=== PATIENT | male | born 1980 | race African-American/Black ===

== ENCOUNTER 2017-03-01 22:40 | Inpatient (IN) | payer OTHER ==
--- NOTE | 2017-03-01 23:14 | PDOC ---
History of Present Illness - General History Source: Patient Exam Limitations: No Limitations - History of Present Illness Travel History: No Initial Comments: 03/02/17 01:57 The patient is a 36 year old male with a significant past medical history of thyroid disease s/p thyroidectomy who presents to the ED with 2 days of cough and 1 day of abdominal pain and fever. The patient reports a progressively worsening cough since yesterday. He states his cough is productive of phlegm. He reports an onset of generalized abdominal pain, worsened at the site of his umbilical hernia today. Patient states his cough worsens his abdominal pain and he is spitting up food and phlegm but denies any nausea/vomiting. Patient also reports a subjective fever and generalized weakness associated with present symptoms. Denies chest pain. Denies diarrhea. Denies dysuria, frequency or urgency. Denies any other symptoms. <Mayo Alexander - Last Filed: 03/02/17 02:09> <Thao Sung - Last Filed: 03/02/17 19:55> - General Chief Complaint: SIRS, Suspected/Possible Stated Complaint: FEVER, ABDOMINAL PAIN Time Seen by Provider: 03/01/17 22:59 Past History - Past Medical History COPD: No Seizures: Yes Thyroid Disease: Yes - Suicide/Smoking/Psychosocial Hx Smoking History: Current every day smoker Number of Cigarettes Smoked Daily: 7 Information on smoking cessation initiated: No <Mayo Alexander - Last Filed: 03/02/17 02:09> <Thao Sung - Last Filed: 03/02/17 19:55> - Past Medical History Allergies/Adverse Reactions: Allergies Allergy/AdvReac Type Severity Reaction Status Date / Time No Known Allergies Allergy Verified 03/01/17 22:44 Home Medications: Ambulatory Orders NK [No Known Home Medication] 03/01/17 Review of Systems - Review of Systems Able to Perform ROS?: Yes Comments:: 03/02/17 01:58 CONSTITUTIONAL: + fever, generalized weakness No reported: Diaphoresis, Malaise, Loss of Appetite HEENT: No reported: Rhinorrhea, Nasal Congestion, Throat Pain, Throat Swelling, Difficulty Swallowing, Mouth Swelling, Ear Pain, Eye Pain, Visual Changes CARDIOVASCULAR: No reported: Chest Pain, Syncope, Palpitations, Irregular Heart Rate, Lightheadedness, Peripheral Edema RESPIRATORY:+ cough No reported: SOB with Exertion, Orthopnea, Wheezing, Stridor, Hemoptysis GASTROINTESTINAL: + abdominal pain No reported: Abdominal Distension, Nausea, Vomiting, Diarrhea, Constipation, Melena, Hematochezia GENITOURINARY: No reported: Dysuria, Frequency, Urgency, Hesitancy, Flank Pain, Genital Pain MUSCULOSKELETAL: No reported: Myalgia, Arthralgia, Joint Swelling, Back pain, Neck Pain SKIN: No reported: Rash, Itching, Pallor HEMEATOLOGIC/IMMUNOLOGIC: No reported: Easy Bleeding, Easy Bruising, Lymphadenopathy, Frequent infections ENDOCRINE: No reported: Unexplained Weight Gain, Unexplained Weight Loss, Heat Intolerance , Cold Intolerance NEUROLOGIC: No reported: Headache, Focal Weakness, Paresthesias, Vertigo, Lightheadedness, Unsteady Gait, Seizure, Mental Status Changes, Incontinence PSYCHIATRIC: No reported: Anxiety, Depression <Catherine,Mayo - Last Filed: 03/02/17 02:09> *Physical Exam - Vital Signs Last Vital Signs Temp Pulse Resp BP Pulse Ox 101.4 F H 113 H 20 151/83 94 L 03/01/17 22:44 03/01/17 22:44 03/01/17 22:44 03/01/17 22:44 03/01/17 22:44 - Physical Exam Comments: 03/02/17 01:58 GENERAL: The patient is awake, alert, and fully oriented, Nontoxic - in no acute distress. HEAD: Normocephalic, atraumatic. EYES: extraocular movements intact, sclera anicteric, conjunctiva clear. ENT: + Dry mucosa. Normal voice NECK: Normal range of motion, supple LUNGS: Breath sounds equal, clear to auscultation bilaterally. No wheezes, no rhonchi, no rales. HEART: Regular rate and rhythm, without murmur, rub or gallop. ABDOMEN: + Ventral and umbilical hernia, umbilical hernia is mildly tender but easily reducible. mild left lower quadrant tenderness. normoactive bowel sounds. No guarding, no rebound.N o CVA tenderness EXTREMITIES: Normal range of motion, no edema. No clubbing or cyanosis. No cords, erythema, or tenderness. NEUROLOGICAL: No facial assymetry, Normal speech PSYCH: Normal mood, normal affect. SKIN: Warm, Dry, normal turgor <Catherine,Mayo - Last Filed: 03/02/17 02:09> - Vital Signs Last Vital Signs Temp Pulse Resp BP Pulse Ox 101.4 F H 113 H 20 151/83 94 L 03/01/17 22:44 03/01/17 22:44 03/01/17 22:44 03/01/17 22:44 03/01/17 22:44 <Thao Sung - Last Filed: 03/02/17 19:55> ED Treatment Course - LABORATORY CBC & Chemistry Diagram: 03/01/17 23:32 03/01/17 23:32 <CatherineMayo - Last Filed: 03/02/17 02:09> - LABORATORY CBC & Chemistry Diagram: 03/01/17 23:32 03/01/17 23:32 - ADDITIONAL ORDERS Additional order review: Laboratory Results 03/01/17 03/01/17 23:32 23:27 Sodium 139 Potassium 4.0 Chloride 101 Carbon Dioxide 31 Anion Gap 7 L BUN 18 Creatinine 1.8 H Creat Clearance w eGFR 43.41 Random Glucose 111 H Calcium 8.8 Total Bilirubin 0.4 AST 29 ALT 30 Alkaline Phosphatase 66 Total Protein 7.9 Albumin 4.5 Urine Color Yellow Urine Appearance Slcloudy Urine pH 5.0 Ur Specific [place] 1.028 Urine Protein 1+ H Urine Glucose (UA) Negative Urine Ketones Negative Urine Blood Negative Urine Nitrite Negative Urine Bilirubin Negative Urine Urobilinogen 4.0 e.u/dl Urine WBC (Auto) 11 Urine RBC (Auto) 1 Ur Epithelial Cells Rare Urine Bacteria Few Hyaline Casts 1 Urine Mucus Moderate 03/02/17 02:42 Influenza Types A,B Antigen ([facility]) - Final Nasopharyngeal Swab - Final 03/01/17 23:32 RBC 3.89 L MCV 95.1 MCHC 34.0 RDW 14.3 MPV 9.7 Neutrophils % 75.4 Lymphocytes % 10.8 Monocytes % 11.7 H Eosinophils % 0.8 Basophils % 1.3 - Medications Given in the ED: ED Medications Discontinued Medications Generic Name Dose Route Start Last Admin Trade Name Freq PRN Reason Stop Dose Admin Acetaminophen 650 mg 03/01/17 23:15 03/01/17 23:34 Tylenol - PO 03/01/17 23:16 650 mg ONCE ONE Administration Sodium Chloride 1,000 mls @ 1,000 mls/hr 03/01/17 23:15 03/01/17 23:34 Normal Saline - IV 03/02/17 00:14 1,000 mls/hr .Q1H ONE Administration Oseltamivir Phosphate 75 mg 03/02/17 04:16 03/02/17 04:45 Tamiflu - PO 03/02/17 04:17 75 mg ONCE ONE Administration <Thao Sung - Last Filed: 03/02/17 19:55> Medical Decision Making - Medical Decision Making 03/02/17 01:05 36y M hx presents with complaint of abdominal pain and cough. Pt states he started having a cough yeserday but abd pain started today with fever. no associated vomiting, diarrhea. on exam pts abdomen is soift with a ventral and reducible umbilical hernai and mild LLQ pain. lungs are clear to ascultation i suspect he pts abd pain may be msk secondary to his cough however with mil dtenderness will erasesss will obtain cxr to r/o pna and will obtain lab work 03/02/17 02:10 pts alb work unremarable no obvious infiltrate on cxr pt still with abd pain will obtain ct abdomen pts cr is 1.8 - will obtain ct with po contrast without IV contrast pt signed out to dr. sung to reassess the patient. <Mayo Alexander - Last Filed: 03/02/17 02:09> - Medical Decision Making 03/02/17 04:46 Patient Name: NAVI ELENA THIS IS A PRELIMINARY REPORT FROM [facility] DATE OF SERVICE: 2017-03-02 04:18:54 IMAGES: 563 EXAM: CT ABDOMEN AND PELVIS without contrast HISTORY: Abdominal pain COMPARISON: None. FINDINGS: Bibasilar dependent atelectasis is noted. The visualized cardiac chambers are normal size and configuration. There is a small pericardial effusion. Tiny bilateral nonobstructing renal stones are noted. Normal unenhanced liver, gallbladder, pancreas, spleen, adrenal glands . The stomach and abdominal small and large bowel are normal. There is no aortic aneurysm. There is no significant retroperitoneal lymphadenopathy. There is a small mildly inflamed fat containing umbilical hernia. The pelvic small and large bowel are normal. The appendix is normal. The urinary bladder and prostate gland are normal. No pelvic free fluid is identified. There is no significant pelvic lymphadenopathy. IMPRESSION: Tiny bilateral nonobstructing renal stones. Small pericardial effusion. Small mildly inflamed fat containing umbilical hernia, possibly the cause of the patient's symptomatology. THIS DOCUMENT HAS BEEN ELECTRONICALLY SIGNED 03/02/17 19:54 Pt looks awful and spiked another temp. He has flu, UTI, fever, weakness, fat hernia with abd pain and I cannot send him home in this condition. He was [facility] to [facility], as his PMD is Letty. I spoke to [facility] to let him know of the patient. <Thao Sung - Last Filed: 03/02/17 19:55> *DC/Admit/Observation/Transfer <Mayo Alexander - Last Filed: 03/02/17 02:09> - Discharge Dispostion Admit: Yes <Thao Sung - Last Filed: 03/02/17 19:55> Diagnosis at time of Disposition: Influenza A, Kidney stone, UTI (urinary tract infection), Weakness - Discharge Dispostion Condition at time of disposition: Guarded
[2017-03-01] MEDS ORDERED: ACETAMINOPHEN 325 MG TABLET (FP) PO ONE (23:15)
[2017-03-01] MEDS ORDERED: SODIUM CHLORIDE 1,000 ML IV ONE (23:15)
[2017-03-01] MEDS ORDERED: ACETAMINOPHEN 325 MG TABLET (FP) ONE (23:21)
[2017-03-01 23:37] LABS: BASOPHIL 1.3 % (0-2.0); EOSINOPHIL 0.8 % (0-4.5); MCH 32.3 pg (25.7-33.7); MEAN CELL VOLUME 95.1 fl (80-96); MEAN PLT VOLUME 9.7 fl (7.5-11.1); NEUTROPHILS 75.4 % (42.8-82.8); PLATELET COUNT 163 K/MM3 (134-434); RDW 14.3 % (11.9-15.9); WHITE BLOOD COUNT 6.4 K/mm3 (4.0-10.0)
[2017-03-01 23:41] LABS: URINE APPEARANCE SLCLOUDY; URINE BILIRUBIN NEGATIVE (NEGATIVE); URINE BLOOD NEGATIVE (NEGATIVE); URINE COLOR YELLOW; URINE GLUCOSE (UA) NEGATIVE (NEGATIVE); URINE KETONE NEGATIVE (NEGATIVE); URINE NITRITE NEGATIVE (NEGATIVE); URINE UROBILINOGEN 4.0 E.U/dl mg/dL (0.2-1.0)
[2017-03-01 23:47] LABS: URINE LEUK ESTERASE 1+ (NEGATIVE); URINE PROTEIN 1+ (NEGATIVE)
[2017-03-01 23:48] LABS: URINE BACTERIA FEW /hpf (NONE SEEN); URINE HYALINE CAST 1 /lpf; URINE MUCUS MODERATE; URINE RBC 1 /hpf (0-3); URINE WBC 11 /hpf (3-5)
[2017-03-01 23:58] LABS: ALBUMIN 4.5 g/dl (3.4-5.0); ALK PHOS 66 U/L (45-117); ANION GAP 7 (8-16); BILIRUBIN,TOTAL 0.4 mg/dL (0.2-1.0); CALCIUM 8.8 mg/dL (8.5-10.1); CO2 31 mmol/L (21-32); CREATININE 1.8 mg/dL (0.7-1.3); GLUCOSE,RANDOM 111 mg/dL (74-106); SGOT/AST 29 U/L (15-37); SGPT/ALT 30 U/L (12-78); TOT PROT 7.9 g/dl (6.4-8.2)
[2017-03-02] MEDS ORDERED: OSELTAMIVIR PHOSPHATE 75 MG CAPSULE PO ONE (04:16)
[2017-03-02] MEDS ORDERED: OSELTAMIVIR PHOSPHATE 75 MG CAPSULE ONE (04:20)
[2017-03-02] MEDS ORDERED: ACETAMINOPHEN 1000 MG/100 ML VIAL (NON FORMULARY) IVPB ONE (04:51)
[2017-03-02] MEDS ORDERED: ACETAMINOPHEN INJECTION 100 ML IVPB ONE ×2 (04:54→04:55)
[2017-03-02] MEDS ORDERED: CEFTRIAXONE 1 GM in DEXTROSE 5%-WATER - 50 ML IVPB ONE (04:55)
[2017-03-02] MEDS ORDERED: CEFTRIAXONE 1 GM/50 ML BAG ONE (04:55)
[2017-03-02 07:21] VITALS: BMI 43.2
[2017-03-02] MEDS ORDERED: ACETAMINOPHEN 325 MG TABLET (FP) PO PRN (11:21)
[2017-03-02] MEDS ORDERED: D5-1/2NS+20 MEQ KCL - 20 MEQ/1,000 ML INFUS.BAG IV SCH (11:30)
--- NOTE | 2017-03-02 11:30 | HP ---
Admitting History and Physical - Admission History of Present Illness: 36 year old male with a significant past medical history of thyroid disease s/p thyroidectomy who presents to the ED with 2 days of cough and 1 day of abdominal pain and fever. The patient reports a progressively worsening cough since yesterday. He states his cough is productive of phlegm. He reports an onset of generalized abdominal pain, worsened at the site of his umbilical hernia today. Patient states his cough worsens his abdominal pain and he is spitting up food and phlegm but denies any nausea/vomiting. Patient also reports a subjective fever and generalized weakness associated with present symptoms. Denies chest pain. Denies diarrhea. Denies dysuria, frequency or urgency. Denies any other symptoms. - Past Medical History Endocrine: Yes: Hypothyroidism - Past Surgical History Additional Past Surgical History: thyroidectomy - Smoking History Smoking history: Current every day smoker Aproximately how many cigarettes per day: 7 Home Medications - Allergies Allergies/Adverse Reactions: Allergies Allergy/AdvReac Type Severity Reaction Status Date / Time No Known Allergies Allergy Verified 03/01/17 22:44 - Home Medications Home Medications: Ambulatory Orders NK [No Known Home Medication] 03/01/17 Review of Systems - Review of Systems Constitutional: reports: Fever Cardiovascular: denies: Chest Pain, Edema Respiratory: reports: Cough Gastrointestinal: reports: Abdominal Pain Physical Examination Vital Signs: Vital Signs Temperature 99.3 F 03/02/17 07:19 Pulse Rate 103 H 03/02/17 07:19 Respiratory Rate 22 03/02/17 07:19 Blood Pressure 150/96 03/02/17 07:19 O2 Sat by Pulse Oximetry (%) 91 L 03/02/17 07:10 Cardiovascular: Yes: S1, S2 Respiratory: Yes: Diminished Gastrointestinal: Yes: Normal Bowel Sounds, Soft, Tenderness, Other (umbilical hernia) Labs: CBC, BMP 03/01/17 23:32 03/01/17 23:32 Imaging - Results Chest X-ray: Image Reviewed Problem List - Problems (1) Abdominal pain Assessment/Plan: NPO IVF GI AND SURGICAL CONSULTS Code(s): R10.9 - UNSPECIFIED ABDOMINAL PAIN (2) Umbilical hernia Assessment/Plan: ABOVE Code(s): K42.9 - UMBILICAL HERNIA WITHOUT OBSTRUCTION OR GANGRENE (3) Influenza A Assessment/Plan: TAMIFLU NEBS ID CONSULT Code(s): J10.1 - FLU DUE TO OTH IDENT INFLUENZA VIRUS W OTH RESP MANIFEST
--- NOTE | 2017-03-02 12:12 | PN ---
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 -hypothyroid denies seizures no prior surgery no travel prior thyroidectomy ct scan prelim with mildly inflamed fat containing umbilical hernia Influenza A in cigarette smoker/morbidly obese man agree with tamiflu would get blood cultures would ask pulmonary to see given hypoxia will get abg as well check ekg received rocephin/tamiflu in ed this am check tsh droplet isolation no clear infiltrate on cxray ?OSAS abdominal pain most likely due to umbilical hernia Problem List - Problems (1) Influenza A Code(s): J10.1 - FLU DUE TO OTH IDENT INFLUENZA VIRUS W OTH RESP MANIFEST (2) Morbid obesity Code(s): E66.01 - MORBID (SEVERE) OBESITY DUE TO EXCESS CALORIES
--- NOTE | 2017-03-02 12:43 | CON.PULM ---
Consult Consult Specialty:: PULMONARY Referred by:: Dr. Fuentes Reason for Consultation:: sepsis - History of Present Illness Chief Complaint: abdominal pain History of Present Illness: 36yo male with h/o thyroidectomy who presents with abdominal pain, fevers and cough x 2 days. He reports that his mother and niece were sick with similar symptoms. Cough productive of white/clear sputum. No wheezing. Abdominal pain at the site of his umbilical hernia. He is an every day smoker, no history of asthma or COPD. Did receive his flu shot this year. Denies snoring or witnessed apneas. - History Source History Provided By: Patient, Medical Record Limitations to Obtaining History: Clinical Condition - Past Medical History Endocrine: Yes: Hypothyroidism - Past Surgical History Additional Surgical History: thyroidectomy - Smoking History Smoking history: Current every day smoker Aproximately how many cigarettes per day: 7 Home Medications - Allergies Allergies/Adverse Reactions: Allergies Allergy/AdvReac Type Severity Reaction Status Date / Time No Known Allergies Allergy Verified 03/01/17 22:44 - Home Medications Home Medications: Ambulatory Orders NK [No Known Home Medication] 03/01/17 Review of Systems - Review of Systems Constitutional: reports: Chills, Fever, Malaise Eyes: denies: Recent Change in Vision HENT: denies: Nasal Congestion, Throat Pain Neck: denies: Stiffness, Tenderness Cardiovascular: reports: Shortness of Breath. denies: Chest Pain, Edema, Palpitations Respiratory: reports: Cough, SOB on Exertion. denies: Hemoptysis, Wheezing Gastrointestinal: reports: Abdominal Pain. denies: Nausea, Vomiting Genitourinary: denies: Dysuria, Hematuria Neurological: denies: Dizziness, Headache Physical Exam Vital Sings: Vital Signs Temperature 99.3 F 03/02/17 07:19 Pulse Rate 103 H 03/02/17 07:19 Respiratory Rate 22 03/02/17 07:19 Blood Pressure 150/96 03/02/17 07:19 O2 Sat by Pulse Oximetry (%) 91 L 03/02/17 07:10 Constitutional: Yes: Mild Distress Eyes: Yes: Conjunctiva Clear, EOM Intact HENT: Yes: Atraumatic, Normocephalic Neck: Yes: Supple, Trachea Midline Cardiovascular: Yes: Tachycardia Respiratory: Yes: Diminished (distant breath sounds). No: Wheezes ...Clubbing: No Gastrointestinal: Yes: Normal Bowel Sounds, Soft, Abdomen, Obese. No: Tenderness Edema: No Neurological: Yes: Alert, Oriented Labs: CBC, BMP 03/01/17 23:32 03/01/17 23:32 Imaging - Results Chest X-ray: Report Reviewed, Image Reviewed (no infiltrates) Problem List - Problems (1) URI (upper respiratory infection) Code(s): J06.9 - ACUTE UPPER RESPIRATORY INFECTION, UNSPECIFIED (2) Sepsis Code(s): A41.9 - SEPSIS, UNSPECIFIED ORGANISM (3) Acute kidney injury Code(s): N17.9 - ACUTE KIDNEY FAILURE, UNSPECIFIED (4) Smoker Code(s): F17.200 - NICOTINE DEPENDENCE, UNSPECIFIED, UNCOMPLICATED Assessment/Plan URI r/o Influenza Sepsis Acute Kidney Injury Likely [place] - agree with empiric tamiflu - send cultures - IVF - monitor urine output, creatinine - O2 to keep Spo2 >90% - inhaled bronchodilators - DVT prophylaxis - sleep screen when more stable Thank you for this consult Masood Shah MD
[2017-03-02 12:54] LABS: URINE LEUK ESTERASE NEGATIVE (NEGATIVE)
[2017-03-02 13:57] LABS: ARTERIAL BLD GAS O2 SATURATION 89.7 % (90-98.9); ARTERIAL BLOOD GAS BASE EXCESS 4.7 meq/l (-2-2); ARTERIAL BLOOD GAS HCO3 28.7 meq/L (22-26); ARTERIAL BLOOD GAS PO2 55.6 mmHg (80-100); ARTERIAL BLOOD GAS pH 7.45 (7.35-7.45)
[2017-03-02 14:01] LABS: ART PUNCT SITE RIGHT RADIAL
[2017-03-02 14:02] LABS: TYPE OF O2 ROOM AIR
--- NOTE | 2017-03-02 14:26 | CONS ---
DATE OF CONSULTATION: 03/02/2017 This is a 36-year-old man admitted via the emergency room last night. For the last 2 days, he has had cough, fevers and chills at home. He developed some abdominal pain as well with the coughing. He has had white-yellow phlegm. He has nasal discharge. He has no nausea or vomiting. He has been having fever and weakness. 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 There is no history of any travel. He report he had a flu shot this year. He is followed by Dr. Ashraf as an outpatient. He has no chest pain. He reports that he is a cigarette smoker. His past medical history is notable for thyroid disease. He denies seizure disorder. He denies COPD. Surgical history is notable for thyroidectomy, which he reports was for an overactive thyroid. Medications at home include Synthroid. He has no known drug allergies. His family history is not available. SOCIAL HISTORY: He lives in the community. He denies any substance use though he does smoke cigarettes actively. Review of systems is notable for fever, is notable for rhinorrhea. He has nasal congestion. He reports diffuse abdominal pain. PHYSICAL EXAMINATION: Vital Signs: His temperature was 101.8, currently 99.3. Pulse of 89. Blood pressure 176/93. Pulse oximetry of 91% on room air. General: He is a morbidly obese man. He has the sheets pulled over his face but is willing to take them down. HEENT: Normocephalic. His eyes are anicteric. He has rhinorrhea. He has no pharyngitis. Lungs: Scattered rhonchi. Heart: Regular rate and rhythm. Abdomen: Protuberant. He has a small umbilical hernia. He complains of diffuse abdominal pain on exam. Extremities: His extremities are notable for bilateral edema. His labs are notable for white count of 6.4, hemoglobin 12.6, platelets of 163, BUN 18, creatinine 1.8. LFTs are normal. Urinalysis is notable for 1+ protein. Influenza screen was done and is positive for influenza A. Chest x-ray is notable for weak inspiration with some atelectasis. CAT scan of the abdomen and pelvis were done that showed bibasilar atelectasis. He has nonobstructing renal stones. He has a small, mildly inflamed fat-containing umbilical hernia. In summary, this is a 36-year-old man admitted with influenza A, and cigarette smoker, and a morbidly obese man. I would certainly agree with treating him with Tamiflu. Would get blood cultures for his fever. Would ask Pulmonary to see, given his hypoxia, which I suspect is a combination of obstructive sleep apnea and COPD and a smoker, but concerns for viral pneumonia are certainly possible. Would get an ABG as well, check EKG, which has not been done. Would check a TSH, given the history of hypothyroidism. He received Rocephin and Tamiflu. Would place him on droplet isolation and continue Tamiflu for now. He has no clear infiltrate on chest x-ray. With the normal white count, would hold on further antibiotics. His abdominal pain mostly likely is due to umbilical hernia. GI Surgery opinion has been requested. SARAH ESTRELLA M.D. [id number]
--- NOTE | 2017-03-02 14:26 | PN ---
Progress Note, Physician - Current Medication List Current Medications: Active Medications Acetaminophen (Tylenol -) 650 mg PO Q4H PRN PRN Reason: FEVER OR PAIN Albuterol/Ipratropium (Duoneb -) 1 amp NEB QIDR JOANNE Heparin Sodium (Porcine) (Heparin -) 5,000 unit SQ BID [facility] Sodium Chloride (Normal Saline -) 1,000 mls @ 125 mls/hr IV ASDIR JOANNE Oseltamivir Phosphate (Tamiflu -) 75 mg PO BID [facility] Stop: 03/07/17 21:59 - Objective Vital Signs: Vital Signs Temperature 99.3 F 03/02/17 07:19 Pulse Rate 103 H 03/02/17 07:19 Respiratory Rate 22 03/02/17 07:19 Blood Pressure 150/96 03/02/17 07:19 O2 Sat by Pulse Oximetry (%) 91 L 03/02/17 07:10 Cardiovascular: Yes: Regular Rate and Rhythm Respiratory: Yes: Regular, CTA Bilaterally Gastrointestinal: Yes: Normal Bowel Sounds, Soft Labs: CBC, BMP 03/01/17 23:32 03/01/17 23:32 Problem List - Problems (1) Abdominal pain Assessment/Plan: NPO IVF GI AND SURGICAL CONSULTS Code(s): R10.9 - UNSPECIFIED ABDOMINAL PAIN (2) Umbilical hernia Assessment/Plan: ABOVE Code(s): K42.9 - UMBILICAL HERNIA WITHOUT OBSTRUCTION OR GANGRENE (3) Influenza A Assessment/Plan: TAMIFLU NEBS ID CONSULT Code(s): J10.1 - FLU DUE TO OTH IDENT INFLUENZA VIRUS W OTH RESP MANIFEST
[2017-03-02] MEDS: SODIUM CHLORIDE 1,000 ML IV SCH (14:35)
--- NOTE | 2017-03-02 17:44 | CON.GI ---
Consult Consult Specialty:: Gastroenterology Referred by:: Dr. Harrell Reason for Consultation:: Hernia - History of Present Illness Chief Complaint: Pain at umbilical hernia History of Present Illness: 36M is admitted with pain at his umbilical hernia that began yesterday without any provocative activity. He also has constitutional symptoms suggesting the flu. He denies any h/o GI problems. NO diarrhea. 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 Place of : [facility] History of Recent Travel: No Home Medications - Allergies Allergies/Adverse Reactions: Allergies Allergy/AdvReac Type Severity Reaction Status Date / Time No Known Allergies Allergy Verified 03/01/17 22:44 - Home Medications Home Medications: Ambulatory Orders NK [No Known Home Medication] 03/01/17 Family Disease History - Family Disease History Family Disease History: Other: Father (unknown), Mother (healthy aside from HTN) Review of Systems - Review of Systems Constitutional: reports: Chills, Lethargy, Loss of Appetite, Malaise Eyes: reports: No Symptoms HENT: reports: No Symptoms Neck: reports: No Symptoms Cardiovascular: reports: No Symptoms Respiratory: reports: Cough Gastrointestinal: reports: Abdominal Pain Genitourinary: reports: No Symptoms Musculoskeletal: reports: No Symptoms Neurological: reports: No Symptoms Physical Exam-GI Vital Signs: Vital Signs Temperature 100.4 F H 03/02/17 14:42 Pulse Rate 103 H 03/02/17 14:42 Respiratory Rate 18 03/02/17 14:42 Blood Pressure 155/90 03/02/17 14:42 O2 Sat by Pulse Oximetry (%) 91 L 03/02/17 07:10 CBC,CMP WBC 6.4 K/mm3 (4.0-10.0) 03/01/17 23:32 RBC 3.89 M/mm3 (4.00-5.60) L 03/01/17 23:32 Hgb 12.6 GM/dL (11.7-16.9) 03/01/17 23:32 Hct 37.0 % (35.4-49) 03/01/17 23:32 MCV 95.1 fl (80-96) 03/01/17 23:32 MCH 32.3 pg (25.7-33.7) 03/01/17 23:32 MCHC 34.0 g/dl (32.0-35.9) 03/01/17 23:32 RDW 14.3 % (11.9-15.9) 03/01/17 23:32 Plt Count 163 K/MM3 (134-434) 03/01/17 23:32 MPV 9.7 fl (7.5-11.1) 03/01/17 23:32 Neutrophils % 75.4 % (42.8-82.8) 03/01/17 23:32 Lymphocytes % 10.8 % (8-40) 03/01/17 23:32 Monocytes % 11.7 % (3.8-10.2) H 03/01/17 23:32 Eosinophils % 0.8 % (0-4.5) 03/01/17 23:32 Basophils % 1.3 % (0-2.0) 03/01/17 23:32 Sodium 139 mmol/L (136-145) 03/01/17 23:32 Potassium 4.0 mmol/L (3.5-5.1) 03/01/17 23:32 Chloride 101 mmol/L (98-107) 03/01/17 23:32 Carbon Dioxide 31 mmol/L (21-32) 03/01/17 23:32 Anion Gap 7 (8-16) L 03/01/17 23:32 BUN 18 mg/dL (7-18) 03/01/17 23:32 Creatinine 1.8 mg/dL (0.7-1.3) H 03/01/17 23:32 Creat Clearance w eGFR 43.41 (>60) 03/01/17 23:32 Random Glucose 111 mg/dL (74-106) H 03/01/17 23:32 Calcium 8.8 mg/dL (8.5-10.1) 03/01/17 23:32 Total Bilirubin 0.4 mg/dL (0.2-1.0) 03/01/17 23:32 AST 29 U/L (15-37) 03/01/17 23:32 ALT 30 U/L (12-78) 03/01/17 23:32 Alkaline Phosphatase 66 U/L (45-117) 03/01/17 23:32 Total Protein 7.9 g/dl (6.4-8.2) 03/01/17 23:32 Albumin 4.5 g/dl (3.4-5.0) 03/01/17 23:32 Current Medications Generic Name Dose Route Start Last Admin Trade Name Freq PRN Reason Stop Dose Admin Acetaminophen 650 mg 03/02/17 11:21 Tylenol - PO Q4H PRN FEVER OR PAIN Albuterol/Ipratropium 1 amp 03/02/17 18:00 Duoneb - NEB QIDR JOANNE Heparin Sodium (Porcine) 5,000 unit 03/02/17 22:00 Heparin - SQ BID JOANNE Sodium Chloride 1,000 mls @ 125 mls/hr 03/02/17 13:00 03/02/17 14:35 Normal Saline - IV 125 mls/hr ASDIR JOANNE Administration Oseltamivir Phosphate 75 mg 03/02/17 22:00 Tamiflu - PO 03/07/17 21:59 BID JOANNE Constitutional: Yes: Well Nourished Eyes: Yes: Conjunctiva Clear HENT: Yes: Atraumatic, Nasal Congestion Neck: Yes: Supple, Other (transverse healed incision) Cardiovascular: Yes: Regular Rate and Rhythm Respiratory: Yes: CTA Bilaterally Gastrointestinal Inspection: Yes: Hernia (mildly tender umbilical hernia) ...Auscultate: Yes: Normoactive Bowel Sounds ...Palpate: Yes: Tenderness (mild hernia tenderness which recurs immediately after reduction) ...Percussion: Yes: Tympanitic ...Rectal Exam: Yes: Deferred (patient declined) Genitourinary: Yes: Other (no inguinal hernias) Edema: No Labs: CBC, BMP 03/01/17 23:32 03/01/17 23:32 Imaging - Results Cat Scan: Image Reviewed (umbilical hernia and renal stones) Problem List - Problems (1) Umbilical hernia Assessment/Plan: Pain is due to a tender umbilical hernia which is not stangulated at this point. Will defer management to the rn surgical pcu. Dr Conner will return tomorrow. Code(s): K42.9 - UMBILICAL HERNIA WITHOUT OBSTRUCTION OR GANGRENE Qualifiers: Obstruction and gangrene presence: without obstruction or gangrene Qualified Code(s): K42.9 - Umbilical hernia without obstruction or gangrene
[2017-03-02] MEDS: ALBUTEROL SO4 2.5/IPRATROPIUM 0.5 INH SOL 3 ML VIAL.NEB. NEB SCH (17:50)
[2017-03-02] MEDS: HEPARIN NA (PORCINE) 5,000 UNITS/ML 1ML VIAL SQ SCH (21:03)
[2017-03-02] MEDS: OSELTAMIVIR PHOSPHATE 75 MG CAPSULE PO SCH (21:03)
[2017-03-03] MEDS: ALBUTEROL SO4 2.5/IPRATROPIUM 0.5 INH SOL 3 ML VIAL.NEB. NEB SCH ×4 (00:21→18:16)
[2017-03-03] MEDS: SODIUM CHLORIDE 1,000 ML IV SCH (00:45)
[2017-03-03 07:24] LABS: BASOPHIL 1.1 % (0-2.0); EOSINOPHIL 0.6 % (0-4.5); MCH 31.8 pg (25.7-33.7); MCHC 33.3 g/dl (32.0-35.9); MEAN CELL VOLUME 95.5 fl (80-96); MEAN PLT VOLUME 9.7 fl (7.5-11.1); NEUTROPHILS 48.9 % (42.8-82.8); PLATELET COUNT 141 K/MM3 (134-434); RDW 14.3 % (11.9-15.9); WHITE BLOOD COUNT 4.6 K/mm3 (4.0-10.0)
[2017-03-03 08:19] LABS: ALBUMIN 3.6 g/dl (3.4-5.0); ALK PHOS 59 U/L (45-117); ANION GAP 7 (8-16); BILIRUBIN,TOTAL 0.4 mg/dL (0.2-1.0); CALCIUM 7.5 mg/dL (8.5-10.1); CO2 29 mmol/L (21-32); CREATININE 1.8 mg/dL (0.7-1.3); GLUCOSE,RANDOM 78 mg/dL (74-106); MAGNESIUM 1.9 mg/dL (1.8-2.4); PHOSPHOROUS 3.2 mg/dL (2.5-4.9); SGOT/AST 35 U/L (15-37); SGPT/ALT 37 U/L (12-78); TOT PROT 6.7 g/dl (6.4-8.2)
--- NOTE | 2017-03-03 08:20 | CONSULT ---
- Consultation REQUESTING PROVIDER: Julio Cesar SANDHU CONSULT REQUEST: We have been asked to surgically evaluate this patient for abdominal pain PCP:Yajaira Bardales HISTORY OF PRESENT ILLNESS: CTSP for evaluation and management of abdominal pain ; pain started after coughing b/o probable URI; pain at site of known umbilical hernia; he ststes he told his PCP about it h/e he was never told to see a surgeon for evaluation for repair; pain is 5-6/10 at the umbilicus; NOC. PMHx: hypertension hypothyroid PSHx: thyroidectomy Home Medications Medication Instructions Recorded NK [No Known Home Medication] 03/01/17 Allergies Allergy/AdvReac Type Severity Reaction Status Date / Time No Known Allergies Allergy Verified 03/01/17 22:44 PHYSICAL EXAM: GENERAL: Awake, alert, and fully oriented, in no acute distress. HEAD: Normal with no signs of trauma. EYES: sclera anicteric, conjunctiva clear. NECK: Normal ROM, supple without lymphadenopathy, JVD, or masses.healed scar ABDOMEN: Soft, nontender, not distended, normoactive bowel sounds, no guarding, no rebound, no masses. No organomegaly. Reducible umbilical hernia MUSCULOSKELETAL: Normal ROM at all joints. No bony deformities or tenderness. No CVA tenderness. UPPER EXTREMITIES: 2+ pulses, warm, well-perfused. No cyanosis. Cap refill <2 seconds. No peripheral edema. LOWER EXTREMITIES: 2+ pulses, warm, well-perfused. No calf tenderness. No peripheral edema. NEUROLOGICAL: Normal speech, gait not observed. PSYCH: Cooperative. Good eye contact. Appropriate mood and affect. SKIN: Warm, dry, normal turgor, no rashes or lesions noted. Vital Signs Temperature 98 F 03/03/17 06:00 Pulse Rate 80 03/03/17 06:00 Respiratory Rate 20 03/03/17 06:00 Blood Pressure 138/86 03/03/17 06:00 O2 Sat by Pulse Oximetry (%) 94 L 03/02/17 20:02 Lab Results WBC 4.6 K/mm3 (4.0-10.0) 03/03/17 06:20 RBC 3.58 M/mm3 (4.00-5.60) L 03/03/17 06:20 Hgb 11.4 GM/dL (11.7-16.9) L 03/03/17 06:20 Hct 34.2 % (35.4-49) L 03/03/17 06:20 MCV 95.5 fl (80-96) 03/03/17 06:20 MCHC 33.3 g/dl (32.0-35.9) 03/03/17 06:20 RDW 14.3 % (11.9-15.9) 03/03/17 06:20 Plt Count 141 K/MM3 (134-434) 03/03/17 06:20 Sodium 139 mmol/L (136-145) 03/01/17 23:32 Potassium 4.0 mmol/L (3.5-5.1) 03/01/17 23:32 Chloride 101 mmol/L (98-107) 03/01/17 23:32 Carbon Dioxide 31 mmol/L (21-32) 03/01/17 23:32 Anion Gap 7 (8-16) L 03/01/17 23:32 BUN 18 mg/dL (7-18) 03/01/17 23:32 Creatinine 1.8 mg/dL (0.7-1.3) H 03/01/17 23:32 Random Glucose 111 mg/dL (74-106) H 03/01/17 23:32 Calcium 8.8 mg/dL (8.5-10.1) 03/01/17 23:32 CT a/p reviewed IMP: umbilical hernia not incarcerated and/or strangulated PLAN: Advise repair if patient does not have URI secondary to flu; if so he can be followed up in the outpatient setting for repair. Sterling Hutchinson MD FACS Visit type - Case Type Case Type: ED Admission - Emergency Emergency Visit: Yes ED Registration Date: 03/02/17 Care time: The patient presented to the Emergency Department on the above date and was hospitalized for further evaluation of their emergent condition. - New patient This patient is new to me today: Yes Date on this admission: 03/03/17 - Critical Care Critical Care patient: No
[2017-03-03] MEDS: OSELTAMIVIR PHOSPHATE 75 MG CAPSULE PO SCH ×2 (10:12→22:10)
[2017-03-03] MEDS: HEPARIN NA (PORCINE) 5,000 UNITS/ML 1ML VIAL SQ SCH ×2 (10:12→22:10)
--- NOTE | 2017-03-03 11:22 | PN ---
Progress Note (short form) - Note Progress Note: PULMONARY Feels better today. Febrile to 102 overnight. Still some abdominal pain. Last Vital Signs Temp Pulse Resp BP Pulse Ox 98 F 80 20 138/86 94 L 03/03/17 06:00 03/03/17 06:00 03/03/17 06:00 03/03/17 06:00 03/02/17 20:02 Gen: NAD in chair Heart: RRR Lung: distant breath sounds Abd: soft, nontender Ext: no edema CBC, BMP 03/03/17 06:20 03/03/17 06:20 Active Medications Acetaminophen (Tylenol -) 650 mg PO Q4H PRN PRN Reason: FEVER OR PAIN Last Admin: 03/02/17 19:42 Dose: 650 mg Albuterol/Ipratropium (Duoneb -) 1 amp NEB QIDR [facility] Last Admin: 03/03/17 06:43 Dose: 1 amp Heparin Sodium (Porcine) (Heparin -) 5,000 unit SQ BID [facility] Last Admin: 03/03/17 10:12 Dose: 5,000 unit Sodium Chloride (Normal Saline -) 1,000 mls @ 125 mls/hr IV ASDIR [facility] Last Admin: 03/03/17 00:45 Dose: 125 mls/hr Oseltamivir Phosphate (Tamiflu -) 75 mg PO BID [facility] Stop: 03/07/17 21:59 Last Admin: 03/03/17 10:12 Dose: 75 mg A/P Influenza A Sepsis Acute Kidney Injury Likely [place] Umbilical Hernia - continue tamiflu - IVF - monitor urine output, creatinine - O2 to keep Spo2 >90% - inhaled bronchodilators - DVT prophylaxis Problem List - Problems (1) URI (upper respiratory infection) Code(s): J06.9 - ACUTE UPPER RESPIRATORY INFECTION, UNSPECIFIED (2) Sepsis Code(s): A41.9 - SEPSIS, UNSPECIFIED ORGANISM (3) Acute kidney injury Code(s): N17.9 - ACUTE KIDNEY FAILURE, UNSPECIFIED (4) Smoker Code(s): F17.200 - NICOTINE DEPENDENCE, UNSPECIFIED, UNCOMPLICATED
--- NOTE | 2017-03-03 11:49 | PN ---
Progress Note, Physician History of Present Illness: No events. States pain better. Tolerating regular diet this am - Current Medication List Current Medications: Active Medications Acetaminophen (Tylenol -) 650 mg PO Q4H PRN PRN Reason: FEVER OR PAIN Last Admin: 03/02/17 19:42 Dose: 650 mg Albuterol/Ipratropium (Duoneb -) 1 amp NEB QIDR [facility] Last Admin: 03/03/17 06:43 Dose: 1 amp Heparin Sodium (Porcine) (Heparin -) 5,000 unit SQ BID [facility] Last Admin: 03/03/17 10:12 Dose: 5,000 unit Sodium Chloride (Normal Saline -) 1,000 mls @ 125 mls/hr IV ASDIR [facility] Last Admin: 03/03/17 00:45 Dose: 125 mls/hr Oseltamivir Phosphate (Tamiflu -) 75 mg PO BID [facility] Stop: 03/07/17 21:59 Last Admin: 03/03/17 10:12 Dose: 75 mg - Objective Vital Signs: Vital Signs Temperature 98 F 03/03/17 06:00 Pulse Rate 80 03/03/17 06:00 Respiratory Rate 20 03/03/17 06:00 Blood Pressure 138/86 03/03/17 06:00 O2 Sat by Pulse Oximetry (%) 94 L 03/02/17 20:02 Constitutional: Yes: No Distress, Calm Eyes: Yes: Conjunctiva Clear HENT: Yes: Atraumatic Neck: Yes: Supple Respiratory: Yes: Regular Gastrointestinal: Yes: Soft, Abdomen, Obese. No: Tenderness Neurological: Yes: Alert, Oriented Labs: CBC, BMP 03/03/17 06:20 03/03/17 06:20 Laboratory Results - last 24 hr 03/01/17 03/02/17 03/03/17 23:27 13:50 06:20 WBC 4.6 RBC 3.58 L Hgb 11.4 L Hct 34.2 L MCV 95.5 MCH 31.8 MCHC 33.3 RDW 14.3 Plt Count 141 MPV 9.7 Neutrophils % 48.9 D Lymphocytes % 36.7 D Monocytes % 12.7 H Eosinophils % 0.6 Basophils % 1.1 Puncture Site Right radial ABG pH 7.45 ABG pCO2 at Pt Temp 42.0 ABG pO2 at Pt Temp 55.6 L ABG HCO3 28.7 H ABG O2 Sat (Measured) 89.7 L ABG O2 Content 14.7 L ABG Base Excess 4.7 H O2 Delivery Device Room air Sodium Potassium Chloride Carbon Dioxide Anion Gap BUN Creatinine Creat Clearance w eGFR Random Glucose Lactic Acid Calcium Phosphorus Magnesium Total Bilirubin AST ALT Alkaline Phosphatase Total Protein Albumin TSH Ur Leukocyte Esterase Negative 03/03/17 03/03/17 06:20 06:20 WBC RBC Hgb Hct MCV MCH MCHC RDW Plt Count MPV Neutrophils % Lymphocytes % Monocytes % Eosinophils % Basophils % Puncture Site ABG pH ABG pCO2 at Pt Temp ABG pO2 at Pt Temp ABG HCO3 ABG O2 Sat (Measured) ABG O2 Content ABG Base Excess O2 Delivery Device Sodium 139 Potassium 4.0 Chloride 103 Carbon Dioxide 29 Anion Gap 7 L BUN 20 H Creatinine 1.8 H Creat Clearance w eGFR 43.41 Random Glucose 78 D Lactic Acid 0.4 Calcium 7.5 L Phosphorus 3.2 Magnesium 1.9 Total Bilirubin 0.4 AST 35 D ALT 37 D Alkaline Phosphatase 59 Total Protein 6.7 Albumin 3.6 TSH 19.70 H Ur Leukocyte Esterase Assessment/Plan microcytic anemia, mild renal insufficiency Non-surgical abdomen wit CT indicative of uncomplicated umbilical hernia Stool for hemoccult Iron studies Hernia management as per surgery
--- NOTE | 2017-03-03 12:10 | PN ---
Progress Note (short form) - Note Progress Note: feels much better today OOB in chair eating lunch Vital Signs Period Temp Pulse Resp BP Sys/Escobar Pulse Ox Last 24 Hr 98 F-102.2 F 80-103 18-20 138-155/80-90 94 cor-rrr lungs decreased at bases abd soft, +umbilical hernia- soft ext chronic venous stasis CBC, BMP 03/03/17 06:20 03/03/17 06:20 Microbiology 03/02/17 02:42 Nasopharyngeal Swab Influenza Types A,B Antigen (KAYKAY) - Final 03/02/17 02:42 Nasopharyngeal Swab - Final a/p Influenza A in cigarette smoker/morbidly obese man agree with tamiflu needs to finish 5 days continue droplet isolation i abdominal pain most likely due to umbilical hernia
--- NOTE | 2017-03-03 15:03 | EKG ---
Test Reason : Blood Pressure : / mmHG Vent. Rate : 096 BPM Atrial Rate : 096 BPM P-R Int : 184 ms QRS Dur : 094 ms QT Int : 342 ms P-R-T Axes : 034 -24 016 degrees QTc Int : 432 ms NORMAL SINUS RHYTHM LOW VOLTAGE QRS CANNOT RULE OUT ANTEROSEPTAL INFARCT , AGE UNDETERMINED ABNORMAL ECG NO PREVIOUS ECGS AVAILABLE Confirmed by JUDITH ULRICH MD ([id number]) on 03/03/2017 3:03:25 PM Referred By: Gavin HUFF Confirmed By:JUDITH ULRICH MD
--- NOTE | 2017-03-03 15:39 | PN ---
Progress Note, Physician Chief Complaint: AWAKE AND ALERT FRIEND BEDSIDE PATIENT IN ISOLATION ROOM FOR RESP INFECTION - Current Medication List Current Medications: Active Medications Acetaminophen (Tylenol -) 650 mg PO Q4H PRN PRN Reason: FEVER OR PAIN Last Admin: 03/02/17 19:42 Dose: 650 mg Albuterol/Ipratropium (Duoneb -) 1 amp NEB QIDR [facility] Last Admin: 03/03/17 11:50 Dose: 1 amp Heparin Sodium (Porcine) (Heparin -) 5,000 unit SQ BID [facility] Last Admin: 03/03/17 10:12 Dose: 5,000 unit Sodium Chloride (Normal Saline -) 1,000 mls @ 125 mls/hr IV ASDIR [facility] Last Admin: 03/03/17 00:45 Dose: 125 mls/hr Oseltamivir Phosphate (Tamiflu -) 75 mg PO BID [facility] Stop: 03/07/17 21:59 Last Admin: 03/03/17 10:12 Dose: 75 mg - Objective Vital Signs: Vital Signs Temperature 97.8 F 03/03/17 14:00 Pulse Rate 80 03/03/17 14:00 Respiratory Rate 18 03/03/17 14:00 Blood Pressure 129/73 03/03/17 14:00 O2 Sat by Pulse Oximetry (%) 94 L 03/03/17 09:00 Constitutional: Yes: Mild Distress Eyes: Yes: WNL HENT: Yes: WNL Neck: Yes: WNL Cardiovascular: Yes: WNL Respiratory: Yes: On Nasal O2, Rhonchi Gastrointestinal: Yes: Tenderness, Other (UMBILLICAL HERNIA) Genitourinary: Yes: WNL Musculoskeletal: Yes: WNL Extremities: Yes: WNL Edema: No Peripheral Pulses WNL: Yes Integumentary: Yes: WNL Wound/Incision: Yes: Clean/Dry Neurological: Yes: WNL ...Motor Strength: WNL Psychiatric: Yes: WNL Labs: CBC, BMP 03/03/17 06:20 03/03/17 06:20 Problem List - Problems (1) Abdominal pain Code(s): R10.9 - UNSPECIFIED ABDOMINAL PAIN Qualifiers: Abdominal location: periumbilical Qualified Code(s): R10.33 - Periumbilical pain (2) Influenza A Code(s): J10.1 - FLU DUE TO OTH IDENT INFLUENZA VIRUS W OTH RESP MANIFEST (3) Morbid obesity Code(s): E66.01 - MORBID (SEVERE) OBESITY DUE TO EXCESS CALORIES (4) Umbilical hernia Code(s): K42.9 - UMBILICAL HERNIA WITHOUT OBSTRUCTION OR GANGRENE Qualifiers: Obstruction and gangrene presence: without obstruction or gangrene Qualified Code(s): K42.9 - Umbilical hernia without obstruction or gangrene Assessment/Plan INFLUENZA ON TAMIFLU PULM EVAL ID EVAL UMBILLICAL HERNIA SURGERY CONSULT DR MADDEN REPAIRING THE UMBILICAL HERNIA AT THIS TIME BECAUSE OF THE FLU VIRUS RESP. ISOLATION CONTINUED HERNIA REPAIR OUTPATIENT
[2017-03-04] MEDS: SODIUM CHLORIDE 1,000 ML IV SCH (04:12)
[2017-03-04 05:29] VITALS: BP 117/61; TEMP 97.6
[2017-03-04] MEDS: ALBUTEROL SO4 2.5/IPRATROPIUM 0.5 INH SOL 3 ML VIAL.NEB. NEB SCH ×3 (06:40→11:44)
[2017-03-04] MEDS ORDERED: LEVOTHYROXINE NA 112 MCG TABLET (FP) PO SCH (07:00)
[2017-03-04] MEDS: HEPARIN NA (PORCINE) 5,000 UNITS/ML 1ML VIAL SQ SCH (09:30)
[2017-03-04] MEDS: OSELTAMIVIR PHOSPHATE 75 MG CAPSULE PO SCH (09:30)
[2017-03-04 11:33] VITALS: PULSE 70
--- NOTE | 2017-03-04 12:46 | PN ---
Progress Note (short form) - Note Progress Note: PULMONARY Feels better today. No further fevers. Last Vital Signs Temp Pulse Resp BP Pulse Ox 97.6 F 70 20 117/61 98 03/04/17 05:23 03/04/17 11:33 03/04/17 05:23 03/04/17 05:23 03/04/17 11:33 Gen: NAD in chair Heart: RRR Lung: distant breath sounds Abd: soft, nontender Ext: no edema CBC, BMP 03/03/17 06:20 03/03/17 06:20 Active Medications Acetaminophen (Tylenol -) 650 mg PO Q4H PRN PRN Reason: FEVER OR PAIN Last Admin: 03/02/17 19:42 Dose: 650 mg Albuterol/Ipratropium (Duoneb -) 1 amp NEB QIDR [facility] Last Admin: 03/04/17 11:44 Dose: 1 amp Heparin Sodium (Porcine) (Heparin -) 5,000 unit SQ BID [facility] Last Admin: 03/04/17 09:30 Dose: 5,000 unit Sodium Chloride (Normal Saline -) 1,000 mls @ 125 mls/hr IV ASDIR [facility] Last Admin: 03/04/17 04:12 Dose: 125 mls/hr Levothyroxine Sodium (Synthroid -) 112 mcg PO DAILY@0700 [facility] Last Admin: 03/04/17 06:13 Dose: 112 mcg Oseltamivir Phosphate (Tamiflu -) 75 mg PO BID [facility] Stop: 03/07/17 21:59 Last Admin: 03/04/17 09:30 Dose: 75 mg A/P Influenza A Sepsis improving Acute Kidney Injury Likely [place] Umbilical Hernia - continue tamiflu - IVF - monitor urine output, creatinine - O2 to keep Spo2 >90% - inhaled bronchodilators - DVT prophylaxis Problem List - Problems (1) URI (upper respiratory infection) Code(s): J06.9 - ACUTE UPPER RESPIRATORY INFECTION, UNSPECIFIED (2) Sepsis Code(s): A41.9 - SEPSIS, UNSPECIFIED ORGANISM (3) Acute kidney injury Code(s): N17.9 - ACUTE KIDNEY FAILURE, UNSPECIFIED (4) Smoker Code(s): F17.200 - NICOTINE DEPENDENCE, UNSPECIFIED, UNCOMPLICATED
--- NOTE | 2017-03-04 14:55 | DS ---
Physical Examination Vital Signs: Vital Signs Temperature 97.6 F 03/04/17 05:23 Pulse Rate 70 03/04/17 11:33 Respiratory Rate 20 03/04/17 09:00 Blood Pressure 117/61 03/04/17 05:23 O2 Sat by Pulse Oximetry (%) 98 03/04/17 11:33 Constitutional: Yes: No Distress Eyes: Yes: WNL HENT: Yes: WNL Neck: Yes: WNL Cardiovascular: Yes: WNL Respiratory: Yes: WNL Gastrointestinal: Yes: Other (umbillical hernia reducible) Renal/: Yes: WNL Musculoskeletal: Yes: WNL Extremities: Yes: WNL Edema: No Peripheral Pulses WNL: Yes Integumentary: Yes: WNL Wound/Incision: Yes: Clean/Dry Neurological: Yes: WNL ...Motor Strength: WNL Psychiatric: Yes: WNL Labs: CBC, BMP 03/03/17 06:20 03/03/17 06:20 Discharge Summary Reason For Visit: URINARY TRACT INFECTION,INFLUENZA VIRUS,TYPE A Current Active Problems Abdominal pain (Acute) Acute kidney injury (Acute) Influenza A (Acute) Kidney stone (Acute) Morbid obesity (Acute) Sepsis (Acute) Smoker (Acute) URI (upper respiratory infection) (Acute) UTI (urinary tract infection) (Acute) Umbilical hernia (Acute) Weakness (Acute) Procedures: Principal: ct scan Hospital Course: admitted acute influenza treated iv tamiflu and nebs, umbillical hernia repair as outpatient Condition: Fair - Instructions Diet, Activity, Other Instructions: see dr busch surgery as outpatient reg diet Referrals: Masood Ashraf [Primary Care Provider] - Disposition: HOME - Home Medications Comprehensive Discharge Medication List: Ambulatory Orders Levothyroxine [Synthroid -] 112 mcg PO DAILY 03/03/17 Acetaminophen [Tylenol .Regular Strength -] 650 mg PO Q4H PRN tablet 03/04/17 Levothyroxine [Synthroid -] 112 mcg PO DAILY@0700 #30 tablet 03/04/17 Oseltamivir Phosphate [Tamiflu -] 75 mg PO BID #8 capsule 03/04/17
--- NOTE | 2017-03-04 14:58 | CONSULT ---
Consult Consult Specialty:: Nephrology Reason for Consultation:: CKD - History of Present Illness Chief Complaint: fever and abdominal pain History of Present Illness: Pt is a 36 year old male who initially presented to the ER with abdominal vila and fever. He has history of thyroid disease and CKD (per old labs). He also complained of cough. I was called to evaluate him for elevated creatinine. He denies nsaid use. He denies hematuria or dysuria. He denies history of CKD although he has abnormal labs going back a few years. He denies a family history of CKD. He does complains of shortness of breath at times and does complain of lower ext edema. He says he wants to go home and does not want any more testing in the hospital. He is being treated for influenza. - History Source History Provided By: Patient, Medical Record - Past Medical History Renal/: Yes: Renal Calculi Endocrine: Yes: Hypothyroidism - Past Surgical History Additional Surgical History: thyroidectomy - Alcohol/Substance Use Hx Alcohol Use: No - Smoking History Smoking history: Current every day smoker Have you smoked in the past 12 months: Yes Aproximately how many cigarettes per day: 7 Home Medications - Allergies Allergies/Adverse Reactions: Allergies Allergy/AdvReac Type Severity Reaction Status Date / Time No Known Allergies Allergy Verified 03/01/17 22:44 - Home Medications Home Medications: Ambulatory Orders Levothyroxine [Synthroid -] 112 mcg PO DAILY 03/03/17 Acetaminophen [Tylenol .Regular Strength -] 650 mg PO Q4H PRN tablet 03/04/17 Levothyroxine [Synthroid -] 112 mcg PO DAILY@0700 #30 tablet 03/04/17 Oseltamivir Phosphate [Tamiflu -] 75 mg PO BID #8 capsule 03/04/17 Family Disease History - Family Disease History Family History: Denies Review of Systems - Review of Systems Constitutional: reports: Chills, Malaise HENT: reports: No Symptoms Neck: reports: No Symptoms Cardiovascular: reports: Edema Respiratory: reports: Cough, SOB on Exertion Genitourinary: reports: No Symptoms Musculoskeletal: reports: No Symptoms Integumentary: reports: No Symptoms Neurological: reports: No Symptoms Endocrine: reports: No Symptoms Hematology/Lymphatic: reports: No Symptoms Physical Exam Vital Signs: Vital Signs Temperature 97.6 F 03/04/17 05:23 Pulse Rate 70 03/04/17 11:33 Respiratory Rate 20 12/12/17 09:00 Blood Pressure 117/61 03/04/17 05:23 O2 Sat by Pulse Oximetry (%) 98 03/04/17 11:33 Constitutional: Yes: Calm Eyes: Yes: Conjunctiva Clear HENT: Yes: Atraumatic Neck: Yes: Supple Cardiovascular: Yes: S1, S2 Respiratory: Yes: CTA Bilaterally Gastrointestinal: Yes: Soft Renal/: Yes: WNL Musculoskeletal: Yes: WNL Edema: Yes Neurological: Yes: Oriented Psychiatric: Yes: Oriented Labs: CBC, BMP 03/03/17 06:20 03/03/17 06:20 Laboratory Tests 05/16/10 03/01/17 03/03/17 14:30 23:32 06:20 Creatinine 1.9 H D 1.8 H 1.8 H Imaging - Results Cat Scan: Report Reviewed Problem List - Problems (1) CKD (chronic kidney disease) Code(s): N18.9 - CHRONIC KIDNEY DISEASE, UNSPECIFIED (2) Abdominal pain Code(s): R10.9 - UNSPECIFIED ABDOMINAL PAIN Qualifiers: Abdominal location: periumbilical Qualified Code(s): R10.33 - Periumbilical pain (3) Influenza A Code(s): J10.1 - FLU DUE TO OTH IDENT INFLUENZA VIRUS W OTH RESP MANIFEST Assessment/Plan Current Medications Generic Name Dose Route Start Last Admin Trade Name Freq PRN Reason Stop Dose Admin Acetaminophen 650 mg 03/02/17 11:21 03/02/17 19:42 Tylenol - PO 650 mg Q4H PRN Administration FEVER OR PAIN Albuterol/Ipratropium 1 amp 03/02/17 18:00 03/04/17 11:44 Duoneb - NEB 1 amp QIDR JOANNE Administration Heparin Sodium (Porcine) 5,000 unit 03/02/17 22:00 03/04/17 09:30 Heparin - SQ 5,000 unit BID JOANNE Administration Sodium Chloride 1,000 mls @ 125 mls/hr 03/02/17 13:00 03/04/17 04:12 Normal Saline - IV 125 mls/hr ASDIR JOANNE Administration Levothyroxine Sodium 112 mcg 03/04/17 07:00 03/04/17 06:13 Synthroid - PO 112 mcg DAILY@0700 JOANNE Administration Oseltamivir Phosphate 75 mg 03/02/17 22:00 03/04/17 09:30 Tamiflu - PO 03/07/17 21:59 75 mg BID JOANNE Administration Laboratory Tests 05/16/10 03/01/17 03/03/17 14:30 23:27 06:20 Creatinine 1.9 H D 1.8 H Urine Protein 1+ H Urine Blood Negative Impression 1. CKD with unclear etiology 2. Influenza 3. obesity 4. hypothyroidism 5. sepsis 6. proteinuria Plan - explained to pt that he will need a renal workup - can see pt in office and evaluate renal function - proteinuris should be worked up - discussed diet and weight loss - he does not want any more testing in the hospital - his creatinine was 1.[address] Fox
[2017-03-05 06:07] LABS: SERUM IRON 50 ug/dL (38-169); TOTAL IRON BINDING CAPACITY 226 ug/dL (250-450); UIBC 176 ug/dL (111-343)
== END 2017-03-04 16:24 | disposition home or self-care (01) | DRG 872 ==
LOC: JER 22:40 → JERBED 03-02 04:54 → J6S 03-02 06:59
PROVIDERS: ADMIT Family Medicine; ATTEND Family Medicine
DX: A41.9 Sepsis, unspecified organism (principal); N39.0 Urinary tract infection, site not specified; Z68.41 Body mass index [BMI] 40.0-44.9, adult; N17.9 Acute kidney failure, unspecified; J98.11 Atelectasis; J10.1 Influenza due to other identified influenza virus with other respiratory manifestations; K42.9 Umbilical hernia without obstruction or gangrene; R10.9 Unspecified abdominal pain; N18.9 Chronic kidney disease, unspecified; F17.210 Nicotine dependence, cigarettes, uncomplicated; E66.01 Morbid (severe) obesity due to excess calories; J06.9 Acute upper respiratory infection, unspecified; D50.9 Iron deficiency anemia, unspecified
CPT/HCPCS: 36415; 36600; 71010-TC; 74176-TC; 80053; 81003; 81015; 82803; 83540; 83550; 83605; 83735; 84100; 84443; 85025; 87040; 87804; 93005; 93010; 93306-TC; 94640; 99284-25; J1644

== ENCOUNTER 2020-03-03 02:36 | Emergency (ER) | payer OTHER ==
[2020-03-03 02:55] VITALS: TEMP 98; BMI 41.3
[2020-03-03] MEDS ORDERED: ACETAMINOPHEN 1000 MG/100 ML VIAL (NON FORMULARY) IVPB ONE (03:07)
[2020-03-03] MEDS ORDERED: ACETAMINOPHEN INJECTION 100 ML IVPB ONE (03:27)
[2020-03-03 03:56] LABS: POTASSIUM 3.7 mmol/L (3.5-5.1); SODIUM 139 mmol/L (136-145)
[2020-03-03 03:57] LABS: BASO % 1.3 % (0-2.0); EOS % 4.6 % (0-4.5); HEMATOCRIT 41.5 % (35.4-49); HEMOGLOBIN 13.7 GM/dL (11.7-16.9); LYMPH % 33.7 % (8-40); MCH 32.1 pg (25.7-33.7); MCHC 32.9 g/dl (32.0-35.9); MEAN CELL VOLUME 97.7 fl (80-96); MEAN PLT VOLUME 10.1 fl (7.5-11.1); MONO % 8.3 % (3.8-10.2); NEUT % 52.1 % (42.8-82.8); PLATELET COUNT 149 K/MM3 (134-434); RBC 4.25 M/mm3 (4.00-5.60); RDW 14.5 % (11.9-15.9); WHITE BLOOD COUNT 7.2 K/mm3 (4.0-10.0)
[2020-03-03 03:58] LABS: CALCIUM 8.7 mg/dL (8.5-10.1)
[2020-03-03 03:59] LABS: ALBUMIN 3.7 g/dl (3.4-5.0); BLOOD UREA NITROGEN 12.4 mg/dL (7-18); CO2 29 mmol/L (21-32); GLUCOSE,RANDOM 118 mg/dL (74-106); INR 1.01 (0.83-1.09); PROTHROMBIN TIME (PATIENT) 12.2 SEC (9.7-13.0)
[2020-03-03 04:02] LABS: ACTIVATED PTT 31.3 SECONDS (25.2-36.5); CREATININE 2.1 mg/dL (0.55-1.3); SGOT/AST 27 U/L (15-37); SGPT/ALT 19 U/L (13-61)
[2020-03-03 04:04] LABS: BILIRUBIN,TOTAL 0.3 mg/dL (0.2-1); TOT PROT 7.3 g/dl (6.4-8.2)
[2020-03-03 04:05] LABS: ALK PHOS 73 U/L (45-117)
[2020-03-03 04:10] LABS: ANION GAP 6 MMOL/L (8-16); CHLORIDE 104 mmol/L (98-107)
[2020-03-03 06:26] VITALS: BP 148/74; PULSE 84
== END 2020-03-03 06:26 | disposition home or self-care (01) ==
LOC: JER 02:36
PROC: 3E0333Z Introduction of Anti-inflammatory into Peripheral Vein, Percutaneous Approach (ICD-10-PCS; principal; 2020-03-03)
DX: R10.13 Epigastric pain (principal)
CPT/HCPCS: 36415; 71045-TC-FY; 74176-TC; 80053; 83605; 83690; 84443; 84484; 85025; 85610; 85730; 86850; 86900; 86901; 93005; 93010; 99285-25; J0131